=== PATIENT | male | born 1980 | race Caucasian/White ===

== ENCOUNTER 2018-04-15 08:08 | Emergency (ER) | payer OTHER ==
[~2018-04-15] VITALS: Ht 172.7 cm; Wt 72.6 kg
[2018-04-15 09:14] LABS: URINE BILIRUBIN NEGATIVE (Negative); URINE BLOOD NEGATIVE (Negative); URINE CLARITY CLEAR; URINE COLOR YELLOW; URINE GLUCOSE-RANDOM* NEGATIVE (Negative); URINE KETONES NEGATIVE (Negative); URINE LEUKOCYTES-REFLEX NEGATIVE (Negative); URINE NITRITE-REFLEX NEGATIVE (Negative); URINE PROTEIN (DIPSTICK) NEGATIVE (Negative); URINE UROBILINOGEN 0.2 E.U./dl (0.2-1.0)
[2018-04-15 09:16] LABS: AMP/METHAMP Negative (Negative); BARBITURATES Negative (Negative); BENZODIAZEPINES Negative (Negative); COCAINE Negative (Negative); METHADONE Negative (Negative); OPIATES Negative (Negative); PCP Negative (Negative)
[2018-04-15] MEDS ORDERED: SENNA-DOCUSATE1 EAC1 PO (09:50)
[2018-04-15] MEDS ORDERED: NAPROSYN500 MG PO (09:50)
[2018-04-15] MEDS ORDERED: MEDROLDOSEPACK PO (09:50)
[2018-04-15] MEDS ORDERED: NORCO 5-325 TA1 EACH PO (09:50)
[2018-04-15 10:17] VITALS: BP 118/78
== END 2018-04-15 10:18 | disposition home or self-care (01) ==
LOC: ER 08:08
PROVIDERS: Emergency Medicine
DX: M54.41 Lumbago with sciatica, right side (principal); R09.81 Nasal congestion